=== PATIENT | male | born 1980 | race Two or more races ===

== ENCOUNTER → 2016-11-23 | Outpatient (CLI) | payer OTHER | END | disposition home or self-care (01) | LOC: EEVIPCON 08:15 → SPEC 08:15 | PROVIDERS: ATTEND Nurse Practitioner Family | DX: I26.99 Other pulmonary embolism without acute cor pulmonale (principal) | CPT/HCPCS: 36415; 85610 ==

== ENCOUNTER → 2016-12-04 | Outpatient (CLI) | payer OTHER | END | disposition home or self-care (01) | LOC: EEVIPCON 10:17 → SPEC 10:17 | PROVIDERS: ATTEND Nurse Practitioner Family | DX: S71.029A Laceration with foreign body, unspecified hip, initial encounter (principal) | CPT/HCPCS: 36415; 85610 ==

== ENCOUNTER → 2016-12-11 | Outpatient (CLI) | payer OTHER | END | disposition home or self-care (01) | LOC: SPEC 15:23 | PROVIDERS: ATTEND Nurse Practitioner Family | DX: S71.029A Laceration with foreign body, unspecified hip, initial encounter (principal); W19.XXXA Unspecified fall, initial encounter; Y93.89 Activity, other specified; Y92.89 Other specified places as the place of occurrence of the external cause; Y99.8 Other external cause status | CPT/HCPCS: 36415; 85610 ==

== ENCOUNTER → 2017-01-01 | Outpatient (CLI) | payer OTHER | END | disposition home or self-care (01) | LOC: EEVIPCON 10:00 → SPEC 10:00 | PROVIDERS: ATTEND Nurse Practitioner Family | DX: M79.605 Pain in left leg (principal) | CPT/HCPCS: 36415; 85610 ==

== ENCOUNTER → 2017-02-05 | Outpatient (CLI) | payer OTHER | END | disposition home or self-care (01) | LOC: SPEC 09:24 → EEVIPCON 09:24 | PROVIDERS: ATTEND Nurse Practitioner Family | DX: S71.029A Laceration with foreign body, unspecified hip, initial encounter (principal); X58.XXXA Exposure to other specified factors, initial encounter; Y93.9 Activity, unspecified; Y92.89 Other specified places as the place of occurrence of the external cause; Y99.9 Unspecified external cause status | CPT/HCPCS: 36415; 85610 ==

== ENCOUNTER 2017-03-05 17:06 | Emergency (ER) | payer OTHER ==
[~2017-03-05] VITALS: Ht 185.4 cm; Wt 90.7 kg
--- NOTE | 2017-03-05 17:44 | EKG ---
[address] [address] Test Date: 2017-03-05 Test Time: 17:13:54 Pat Name: DILIA SAENZ Department: Room: Gender: M [employer]: : 1980 Requested By: ASHLEY LANDRY Order Number: [id number] Reading MD: Measurements Intervals [place] Rate: 102 P: 54 [place]: 178 QRS: 63 QRSD: 90 T: 34 QT: 326 QTc: 429 Interpretive Statements SINUS TACHYCARDIA QRS(T) CONTOUR ABNORMALITY CONSIDER ANTEROSEPTAL MYOCARDIAL DAMAGE RI6.01 Unconfirmed report No previous ECG available for comparison
[2017-03-05] MEDS ORDERED: IV NORMAL SALINE 1,000ML 1,000 ML IV ONE (17:45)
[2017-03-05 18:06] LABS: BASO # 0.1 x10^3/uL (0.0-0.2); BASO % 0 % (0-3); EOS % 0 % (0-3); HEMATOCRIT 41.3 % (39.0-53.0); HEMOGLOBIN 13.8 g/dL (13.0-17.5); LYMPH # 1.3 x10^3/uL (1.0-4.8); LYMPH % 9 % (24-48); MEAN CORPUSCULAR HEMOGLOBIN 30 pg (25-35); MEAN CORPUSCULAR HGB CONC 33 g/dL (31-37); MEAN CORPUSCULAR VOLUME 90 fL (79-100); MONO # 0.5 x10^3/uL (0.0-1.1); MONO % 4 % (0-9); NEUT # 11.6 x10^3uL (1.8-7.7); NEUT % 86 % (31-73); PLATELET COUNT 210 x10^3/uL (140-400); RED BLOOD COUNT 4.59 x10^6/uL (4.30-5.70); RED CELL DISTRIBUTION WIDTH 13.8 % (11.5-14.5); WHITE BLOOD COUNT 13.4 x10^3/uL (4.0-11.0)
--- NOTE | 2017-03-05 18:20 | RAD ---
Indication: Altered mental status with confusion and possible seizure. Axial imaging through the brain was performed without contrast. One or more of the following individualized dose reduction techniques were utilized for this examination: 1. Automated exposure control 2. Adjustment of the mA and/or kV according to patient size 3. Use of iterative reconstruction technique No prior studies are available for comparison. The ventricles and sulci are within normal limits. No sulcal effacement, midline shift or hemorrhage is detected. The cisterns are patent. The visualized paranasal sinuses are clear. IMPRESSION: No acute intracranial process is detected. Electronically signed by: Trever Elliott MD (03/05/2017 6:16 PM)
[2017-03-05 18:24] LABS: ALBUMIN 3.1 g/dL (3.4-5.0); ALBUMIN/GLOBULIN RATIO 0.9 (1.0-1.7); CALCIUM 8.2 mg/dL (8.5-10.1); CREATININE 1.2 mg/dL (0.7-1.3); GFR 68.1; POTASSIUM 4.4 mmol/L (3.5-5.1); TOTAL BILIRUBIN 0.2 mg/dL (0.2-1.0); TOTAL PROTEIN 6.4 g/dL (6.4-8.2)
[2017-03-05 18:26] LABS: ACETAMIN 2.5 mcg/mL (10-30); ETHANOL < 10 mg/dL (0-10); SALIC 2.3 mg/dL (2.8-20.0)
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
[2017-03-05] MEDS ORDERED: IV NORMAL SALINE 1,000ML 1,000 ML IV SCH (18:58)
[2017-03-05 21:57] LABS: BACTERIA,URINE FEW /HPF (0-FEW); BILIRUBIN,URINE NEG (NEG); CLARITY,URINE CLOUDY; COLOR,URINE YELLOW; GLUCOSE,URINE NEG (NEG); NITRITE,URINE NEG (NEG); RBC,URINE OCC /HPF (0-2); SQUAMOUS EPITHELIAL CELL,UR OCC /LPF; UROBILINOGEN,URINE 0.2 mg/dL (0.2 mg/dL)
[2017-03-05 21:58] LABS: AMORPHOUS SEDIMENT,UR PRESENT /HPF; SPERM,URINE PRESENT /HPF
[2017-03-05 22:12] LABS: BARBITURATES NEG (NEG); BENZODIAZEPINES NEG (NEG); CANNABINOIDS NEG (NEG); COCAINE NEG (NEG); METHADONE NEG (NEG); OPIATES NEG (NEG); PHENCYCLIDINE NEG (NEG)
[2017-03-05] MEDS ORDERED: LORazepam 1 MG TABLET PO ONE (22:15)
[2017-03-05] MEDS ORDERED: levETIRAcetam 500 MG TABLET PO ONE ×2 (22:15→22:16)
[2017-03-05 22:19] LABS: AMPHETAMINE/METHAMPHETAMINE NEG (NEG)
[2017-03-05 22:30] VITALS: BP 108/75
--- NOTE | 2017-03-06 09:20 | RAD ---
Indication change in mental status. Suspect CVA. Protocol study. A single view of the chest was obtained. No prior imaging of the chest is available. The heart and pulmonary vessels appear normal. The lungs are clear. No acute finding is apparent. IMPRESSION: Normal single view of the chest
== END 2017-03-05 21:48 | disposition home or self-care (01) ==
LOC: ER 17:06
DX: R41.82 Altered mental status, unspecified (principal); T50.905A Adverse effect of unspecified drugs, medicaments and biological substances, initial encounter; G40.89 Other seizures; F19.10 Other psychoactive substance abuse, uncomplicated; I10 Essential (primary) hypertension; Y92.89 Other specified places as the place of occurrence of the external cause
CPT/HCPCS: 36415; 70450; 71010; 72125; 80053; 80305; 81001; 83605; 85027; 85379; 93005; 96360; 96361; 99285; G0480; G0481; J7030

== ENCOUNTER → 2017-03-05 | Outpatient (CLI) | payer OTHER | END | disposition home or self-care (01) | LOC: SPEC 11:00 → EEVIPCON 11:00 | PROVIDERS: ATTEND Nurse Practitioner Family | DX: S71.029A Laceration with foreign body, unspecified hip, initial encounter (principal); X58.XXXA Exposure to other specified factors, initial encounter; Y93.89 Activity, other specified; Y92.89 Other specified places as the place of occurrence of the external cause; Y99.8 Other external cause status | CPT/HCPCS: 36415; 85610 ==